=== PATIENT | female | born 1980 | race Caucasian/White ===

== ENCOUNTER 2017-08-09 14:15 | Emergency (ER) | payer OTHER ==
[2017-08-09 14:15] VITALS: BMI 25.0
[2017-08-09 14:30] VITALS: TEMP 98.7; O2SAT 98
--- NOTE | 2017-08-09 15:25 | ED PDOC ---
Arrival/HPI <Keyon De Souza - Last Filed: 08/09/17 16:27> <Rick Myles - Last Filed: 08/09/17 19:49> - General Chief Complaint: Chest Pain Time Seen by Provider: 08/09/17 14:41 - History of Present Illness Narrative History of Present Illness (Text): 08/09/17 15:20 37 yo F with PMH of fibromyalgia presents to Emergency department with chest pressure. Pt states that last night she started to get blurred vision that lasted only a few minutes. Then today she went to exercise in the morning. After working out she had blurred vision again and things became dark. Again this episode only lasted a few minutes. While patient was at work she started to get a midsternal pressure that radiates inferiorly. Pt was worried and came to Emergency department to be evaluated. Pt states that pressure is still present and doesnt feel anxious. Pt denied shortness of breath, n/v/d, abdominal pain, fever, chills, LOC, syncopal or near syncopal episode, dysuria, HAAS, or dizziness. Of note patient states she recently travelled international one month ago and is currently taking oral contraceptives. PMD: Yolanda (Rick Myles) Past Medical History - Provider Review Nursing Documentation Reviewed: Yes - Infectious Disease Hx of Infectious Diseases: None - Neurological Other/Comment: Fibromyalgia - Musculoskeletal/Rheumatological Other/Comment: fibromyalgia - Psychiatric Hx Anxiety: Yes Hx Depression: Yes Hx Substance Use: No Other/Comment: insomnia - Past Surgical History Past Surgical History: No Previous - Suicidal Assessment Feels Threatened In Home Enviroment: No <Rick Myles - Last Filed: 08/09/17 19:49> Family/Social History - Physician Review Nursing Documentation Reviewed: Yes Family/Social History: No Known Family HX Smoking Status: Former Smoker Hx Alcohol Use: No Hx Substance Use: No Hx Substance Use Treatment: No <Rick Myles - Last Filed: 08/09/17 19:49> Allergies/Home Meds <Keyon De Souza - Last Filed: 08/09/17 16:27> <Rick Myles - Last Filed: 08/09/17 19:49> Allergies/Adverse Reactions: Allergies azithromycin Allergy (Verified 08/09/17 14:50) DIARRHEA Gi problems when taking this medication. Penicillins Allergy (Verified 08/09/17 14:50) ITCHING Home Medications: Home Meds Medication Instructions Recorded Confirmed ALPRAZolam [Xanax] 1 tab PO HS 08/09/17 08/09/17 Zolpidem [Ambien] 10 mg PO HS 08/09/17 08/09/17 tiZANidine [Zanaflex] 4 mg PO HS 08/09/17 08/09/17 Review of Systems - Review of Systems Constitutional: Normal Eyes: Normal ENT: Normal Respiratory: Normal Cardiovascular: Other (chest pressure). absent: Chest Pain, Palpitations, Orthopnea Gastrointestinal: Normal Genitourinary Female: Normal Musculoskeletal: Normal Skin: Normal Neurological: Normal Endocrine: Normal Hemo/Lymphatic: Normal Psychiatric: Normal <Rick Myles - Last Filed: 08/09/17 19:49> Physical Exam Temperature: Afebrile Blood Pressure: Normal Pulse: Regular Respiratory Rate: Normal Appearance: Positive for: Well-Appearing, Non-Toxic, Comfortable Pain Distress: None Mental Status: Positive for: Alert and Oriented X 3 - Systems Exam Head: Present: Atraumatic, Normocephalic Pupils: Present: PERRL Extroacular Muscles: Present: EOMI Conjunctiva: Present: Normal Mouth: Present: Moist Mucous Membranes Neck: Present: Normal Range of Motion Respiratory/Chest: Present: Clear to Auscultation, Good Air Exchange. No: Respiratory Distress, Accessory Muscle Use, Wheezes, Rales, Rhonchi Cardiovascular: Present: Regular Rate and Rhythm, Normal S1, S2. No: Murmurs, Rub Abdomen: Present: Normal Bowel Sounds. No: Tenderness, Distention, Peritoneal Signs, Rebound, Guarding Back: Present: Normal Inspection Upper Extremity: Present: Normal Inspection. No: Cyanosis, Edema Lower Extremity: Present: Normal Inspection. No: Edema Neurological: Present: GCS=15, CN II-XII Intact, Speech Normal Skin: Present: Warm, Dry, Normal Color. No: Rashes Psychiatric: Present: Alert, Oriented x 3, Normal Insight, Normal Concentration <Keyon De Souza - Last Filed: 08/09/17 16:27> Vital Signs Reviewed: Yes Temperature: Afebrile Blood Pressure: Normal Pulse: Regular Respiratory Rate: Normal Appearance: Positive for: Well-Appearing Pain Distress: None Mental Status: Positive for: Alert and Oriented X 3 - Systems Exam Head: Present: Atraumatic, Normocephalic Mouth: Present: Moist Mucous Membranes Neck: Present: Normal Range of Motion Respiratory/Chest: Present: Clear to Auscultation. No: Wheezes, Rales, Rhonchi Cardiovascular: Present: Regular Rate and Rhythm, Normal S1, S2. No: Murmurs, Rub, Muffled Abdomen: No: Tenderness, Distention, Rebound, Guarding Upper Extremity: Present: Normal Inspection Lower Extremity: Present: Normal Inspection Neurological: Present: GCS=15, CN II-XII Intact Skin: Present: Warm, Dry, Normal Color Psychiatric: Present: Alert, Oriented x 3 <Rick Myles - Last Filed: 08/09/17 19:49> Vital Signs Temp Pulse Resp BP Pulse Ox 08/09/17 17:44 68 20 126/91 H 98 08/09/17 14:29 98.7 F 69 18 134/79 98 Medical Decision Making <Keyon De Souza - Last Filed: 08/09/17 16:27> <Rick Myles - Last Filed: 08/09/17 19:49> ED Course and Treatment: 08/09/17 16:27 37 year old female presents to the ED c/o chest pressure. I agree with resident history and physical assessment and plan. I interviewed and examined the patient myself as well. -- Labs -- PERC ruled out; h/o oral contraceptive and recent flight so d-dimer sent -- CXR, EKG EKG = NSR at [address] elevations. Nl Intervals Chest X-ray Accession No. : [id number] Patient Name / ID : MARK LUTHER / [id number] IMPRESSION: No active disease. HEART Score is 1 (ex-smoker). Will repeat troponin in 3 hours. (Keyon De Souza) 08/09/17 15:26 Assessment: 37 yo F presents with 1 day history of chest pressure. Due to patient's history of recent travel and oral contraceptive use, d-dimer ordered to rule out PE. Plan: - CBC - CMP - Cardiac iso - EKG - CXR - D-dimer - Reassess and Disposition 08/09/17 16:34 EKG showed NSR, rate 73. CXR as read by radiologist showed no active disease. 08/09/17 17:22 Labs unremarkable. Discussed results with patient. Advised patient that we will measure cardiac iso 3 hours from initial labs and if negative she could be discharged to follow up with her PMD. 08/09/17 19:16 2nd Troponin negative. Discussed results with patient. Informed patient that her symptoms are likely not cardiac in nature. Advised patient to follow up with her PMD as an outpatient. Patient demonstrates understanding and agrees. (Rick Myles) - Lab Interpretations Lab Results: 08/09/17 15:40 08/09/17 15:40 Lab Results 08/09/17 17:59: Troponin I < 0.01 08/09/17 15:45: Urine HCG, Qual Negative 08/09/17 15:40: PT 12.6 H, INR 1.10 H, APTT 27.5, D-Dimer, Quantitative 210 08/09/17 15:40: Sodium 140, Potassium 4.1, Chloride 105, Carbon Dioxide 23, Anion Gap 16, BUN 16, Creatinine 0.6 L, Est GFR ( Amer) > 60, Est GFR ( Non-Af Amer) > 60, Random Glucose 95, Calcium 9.6, Magnesium 2.2, Total Bilirubin 0.4, AST 32, ALT 33, Alkaline Phosphatase 66, Lactate Dehydrogenase 425, Total Creatine Kinase 72, Troponin I < 0.01, NT-Pro-B Natriuret Pep 23.4, Total Protein 7.7, Albumin 4.2, Globulin 3.5, Albumin/Globulin Ratio 1.2 08/09/17 15:40: WBC 11.7 H, RBC 4.86, Hgb 14.7, Hct 41.9, MCV 86.2, MCH 30.2, MCHC 35.1, RDW 12.2, Plt Count 370, MPV 10.1, Gran % 58.6, Lymph % (Auto) 34.8, [place] % (Auto) 4.9, Eos % (Auto) 1.4 L, Baso % (Auto) 0.3, Gran # 6.86 H, Lymph # (Auto) 4.1 H, [place] # (Auto) 0.6, Eos # (Auto) 0.2, Baso # (Auto) 0.04 - RAD Interpretation Radiology Orders: 08/09/17 15:16 CXR [CHEST PORTABLE] [RAD] Stat - Medication Orders Current Medication Orders: Discontinued Medications Aspirin (Aspirin) 325 mg PO STAT STA Stop: 08/09/17 15:26 Last Admin: 08/09/17 15:35 Dose: 325 mg Disposition/Present on Arrival - Present on Arrival Any Indicators Present on Arrival: No <Keyon De Souza - Last Filed: 08/09/17 16:27> - Present on Arrival Any Indicators Present on Arrival: No History of DVT/PE: No History of Uncontrolled Diabetes: No Urinary Catheter: No History of Decub. Ulcer: No History Surgical Site Infection Following: None - Disposition Have Diagnosis and Disposition been Completed?: Yes Disposition Time: 19:17 Patient Plan: Discharge <Rick Myles - Last Filed: 08/09/17 19:49> - Disposition Diagnosis: Chest pain Disposition: HOME/ ROUTINE Patient Problems: Current Active Problems Problem Status Onset Chest pain Acute Condition: STABLE Discharge Instructions (ExitCare): Chest Pain (ED) Additional Instructions: 1. Follow up with PMD within 1 week 2. Continue home medications as prescribed 3. Return to ED if symptoms worsen Referrals: [facility] Wen Aldridge, [Primary Care Provider] - Follow up with primary Wing Guerrero MD [Staff Provider] - Follow up with primary Forms: [employer] ([place])
[2017-08-09 16:08] LABS: BASO # 0.04 K/mm3 (0.0-2.0); BASO % 0.3 % (0.0-3.0); EOS # 0.2 (0.0-0.7); EOS % 1.4 % (1.5-5.0); GRAN # 6.86 (1.4-6.5); GRAN % 58.6 % (50.0-68.0); HEMOGLOBIN 14.7 g/dL (12.0-16.0); LYMPH # 4.1 (1.2-3.4); LYMPH % 34.8 % (22.0-35.0); MEAN CELL VOLUME 86.2 fl (80.0-105.0); MEAN CORPUSCULAR HEMOGLOBIN 30.2 pg (25.0-35.0); MEAN CORPUSCULAR HGB CONC 35.1 g/dl (31.0-37.0); MEAN PLATELET VOLUME 10.1 fl (7.0-11.0); MONO # 0.6 (0.1-0.6); MONO % 4.9 % (1.0-6.0); RBC 4.86 10^6/uL (3.5-6.1); RED CELL DISTRIBUTION WIDTH 12.2 % (11.5-14.5); WHITE BLOOD COUNT 11.7 10^3/ul (4.5-11.0)
--- NOTE | 2017-08-09 16:30 | RAD ---
HISTORY: chest pain COMPARISON: 09/09/2014 FINDINGS: LUNGS: No active pulmonary disease. PLEURA: No significant pleural effusion identified, no pneumothorax apparent. CARDIOVASCULAR: Normal. OSSEOUS STRUCTURES: No significant abnormalities. VISUALIZED UPPER ABDOMEN: Normal. OTHER FINDINGS: None. IMPRESSION: No active disease.
[2017-08-09 16:31] LABS: INR 1.1 (0.93-1.08); PARTIAL THROMBOPLASTIN TIME 27.5 Seconds (25.1-36.5); PROTHROMBIN TIME 12.6 SECONDS (9.4-12.5)
[2017-08-09 16:38] LABS: ALB/GLOB RATIO 1.2 (1.1-1.8); ALBUMIN 4.2 g/dL (3.0-4.8); ALT/SGPT 33 U/L (7-56); AST/SGOT 32 U/L (14-36); BLOOD UREA NITROGEN 16 mg/dL (7-21); CALCIUM 9.6 mg/dL (8.4-10.5); GFR AFRICAN-AMERICAN > 60; GFR NON-AFRICAN AMERICAN > 60; MAGNESIUM 2.2 mg/dL (1.7-2.2)
[2017-08-09 16:47] LABS: B-TYPE NATRIURETIC PEPTIDE 23.4 pg/mL (0-450)
[2017-08-09 16:51] LABS: TROPONIN I < 0.01 ng/mL
[2017-08-09 17:45] VITALS: BP 126/91; PULSE 68; RESP 20
--- NOTE | 2017-08-09 19:36 | CARD ---
APPROVED REPORT EKG Measurement Heart [id number] <Conclusion> Normal sinus rhythm Normal ECG
== END 2017-08-09 19:30 | disposition home or self-care (01) ==
LOC: ED 14:15
DX: R07.9 Chest pain, unspecified (principal); Z87.891 Personal history of nicotine dependence; M79.7 Fibromyalgia

== ENCOUNTER 2018-03-09 12:05 | Emergency (ER) | payer OTHER ==
[2018-03-09 12:06] VITALS: BMI 25.0
[2018-03-09 12:43] VITALS: TEMP 98.4
--- NOTE | 2018-03-09 13:18 | ED PDOC ---
Arrival/HPI - History of Present Illness Narrative History of Present Illness (Text): 03/09/18 13:14 37 yo F with PMHx of fibromyalgia and lumbar disc herniations presenting to the ED with acute onset lower back pain. Per patient, she was bending down to grab something earlier this morning when she felt a sudden popping sensation in her lower back, followed by acute pain. Patient describes the pain as sharp, 10/10 in severity, nonradiating pain localized to lower spine, worsened by flexion and slightly improved while standing. PMHx: lumbar disc herniations, fibromyalgia PSHx: denies Allergies: PCN, azithromycin Home Medications: as per chart FHx: non-contributory Social Hx: denies alcohol, tobacco, illicit drug use PMD: Dr. Guerrero Time/Duration: 1-3 hours Symptom Onset: Sudden Symptom Course: Unchanged Quality: Stabbing Severity Level: Severe Activities at Onset: Light <Roberth Gutierrez - Last Filed: 03/09/18 16:47> <Ivan White - Last Filed: 03/09/18 17:52> - General Chief Complaint: Back Pain Time Seen by Provider: 03/09/18 12:45 Past Medical History - Provider Review Nursing Documentation Reviewed: Yes - Infectious Disease Hx of Infectious Diseases: None - Cardiac Hx Cardiac Disorders: No - Pulmonary Hx Respiratory Disorders: No - Neurological Hx Neurological Disorder: Yes Other/Comment: Fibromyalgia - HEENT Hx HEENT Disorder: No - Endocrine/Metabolic Hx Endocrine Disorders: No - Hematological/Oncological Hx Blood Disorders: No - Integumentary Hx Dermatological Disorder: No - Musculoskeletal/Rheumatological Hx Musculoskeletal Disorders: Yes Hx Back Pain: Yes Other/Comment: fibromyalgia - Gastrointestinal Hx Gastrointestinal Disorders: No - Genitourinary/Gynecological Hx Genitourinary Disorders: No - Psychiatric Hx Anxiety: Yes Hx Depression: Yes Hx Substance Use: No Other/Comment: insomnia - Past Surgical History Past Surgical History: No Previous - Suicidal Assessment Feels Threatened In Home Enviroment: No <Roberth Gutierrez - Last Filed: 03/09/18 16:47> Family/Social History - Physician Review Nursing Documentation Reviewed: Yes Family/Social History: Unknown Family HX Smoking Status: Former Smoker Hx Alcohol Use: No Hx Substance Use: No Hx Substance Use Treatment: No <Roberth Gutierrez - Last Filed: 03/09/18 16:47> Allergies/Home Meds <BrendaRoberth - Last Filed: 03/09/18 16:47> <Ivan White - Last Filed: 03/09/18 17:52> Allergies/Adverse Reactions: Allergies azithromycin Allergy (Verified 03/09/18 12:37) DIARRHEA Gi problems when taking this medication. Penicillins Allergy (Verified 03/09/18 12:37) ITCHING Home Medications: Home Meds Medication Instructions Recorded Confirmed ALPRAZolam [Xanax] 1 tab PO HS 08/09/17 03/09/18 Zolpidem [Ambien] 10 mg PO HS 08/09/17 03/09/18 tiZANidine [Zanaflex] 4 mg PO HS 08/09/17 03/09/18 Norethindrone AC-Eth Estradiol 1 tab PO DAILY 03/09/18 03/09/18 [Loestrin 21 1-20 Tablet] Review of Systems - Review of Systems Constitutional: Normal Eyes: Normal ENT: Normal Respiratory: Normal Cardiovascular: Normal Gastrointestinal: Normal Genitourinary Female: Normal Musculoskeletal: Back Pain, Myalgias (chronic). absent: Neck Pain, Joint Swelling Skin: Normal Neurological: Normal Endocrine: Normal Hemo/Lymphatic: Normal Psychiatric: Normal <BrendaRoberth - Last Filed: 03/09/18 16:47> Physical Exam - Physical Exam Narrative Physical Exam (Text): 03/09/18 13:27 TTP at L4, L5, S1 spinous processes paraspinal tenderness at same levels Limited ROM with flexion 2/2 pain SLR + on the R gross motor/sensation intact Vital Signs Reviewed: Yes Vital Signs Temp Pulse Resp BP 03/09/18 12:38 98.4 F 77 16 115/76 Temperature: Afebrile Blood Pressure: Normal Pulse: Regular Respiratory Rate: Normal Appearance: Positive for: Well-Appearing, Non-Toxic, Uncomfortable Pain Distress: Moderate Mental Status: Positive for: Alert and Oriented X 3 - Systems Exam Head: Present: Atraumatic, Normocephalic Pupils: Present: PERRL Extroacular Muscles: Present: EOMI Conjunctiva: Present: Normal Ears: Present: Normal Mouth: Present: Moist Mucous Membranes Pharnyx: Present: Normal Neck: Present: Normal Range of Motion. No: MIDLINE TENDERNESS, Paraspinal Tenderness Respiratory/Chest: Present: Clear to Auscultation, Good Air Exchange. No: Respiratory Distress, Accessory Muscle Use, Wheezes, Rales, Rhonchi Cardiovascular: Present: Regular Rate and Rhythm, Normal S1, S2. No: Murmurs Abdomen: Present: Normal Bowel Sounds. No: Tenderness, Distention, Peritoneal Signs, Rebound, Guarding, Mass/Organomegaly Back: Present: Normal Inspection, Midline Tenderness (TTP L4, L5, S1), Paraspinal Tenderness (L4, L5, S1), Pain with Leg Raise (SLR (+) on R). No: CVA Tenderness Upper Extremity: Present: Normal Inspection, Normal ROM, NORMAL PULSES, Capillary Refill < 2s. No: Cyanosis, Edema, Tenderness, Swelling, Erythema Lower Extremity: Present: Normal Inspection, NORMAL PULSES, Normal ROM, Capil laith Refill < 2 s. No: Edema, CALF TENDERNESS, Cyanosis, Erythema Neurological: Present: CN II-XII Intact, Speech Normal Skin: Present: Warm, Dry, Normal Color. No: Rashes Psychiatric: Present: Alert, Oriented x 3, Normal Insight, Normal Concentration <Roberth Gutierrez - Last Filed: 03/09/18 16:47> Vital Signs Temp Pulse Resp BP Pulse Ox 03/09/18 14:55 72 18 121/77 99 03/09/18 12:38 98.4 F 77 16 115/76 <Ivan White - Last Filed: 03/09/18 17:52> Medical Decision Making ED Course and Treatment: 03/09/18 13:32 Impression: 37 yo F with PMHx of disc herniation, fibromyalgia presenting to ED with acute onset non-radiating LBP Plan: --XR lumbar spine --flexeril 10 mg PO x1 --toradol 30 mg IM x1 --urine --monitor and disposition - RAD Interpretation Narrative RAD Interpretations (Text): 03/09/18 16:47 No acute fracture, spondylolysis, or spondylolisthesis. Mild degenerative disc disease of L4-5, L5-S1. Radiology Orders: 03/09/18 13:08 LS SPINE AP/LAT [RAD] Stat Business Education Teacher: ED Physician <Roberth Gutierrez - Last Filed: 03/09/18 16:47> ED Course and Treatment: 03/09/18 13:44 37 year old female presents to the Emergency department complaining of lower back pain. In agreement with resident note, which includes further HPI details. Patient was seen and evaluated with resident, came up with plan and treatment together. 03/09/18 17:43 pt seen with resident. ho of disk herniation with lbp s/p reaching "for something". no direct fall. no saddle anesthesia. xr neg. pt in er specifically requesting ct scan. advised of risk benefit of radiation. agrees to outpt mriadvise outpt fu with outpt mri. 03/09/18 17:43 - RAD Interpretation Radiology Orders: 03/09/18 13:08 LS SPINE AP/LAT [RAD] Stat - Medication Orders Current Medication Orders: Discontinued Medications Cyclobenzaprine HCl (Flexeril) 10 mg PO ONCE ONE Stop: 03/09/18 14:46 Cyclobenzaprine HCl (Flexeril) 10 mg PO STAT STA Stop: 03/09/18 13:09 Ketorolac Tromethamine (Toradol) 30 mg IM ONCE ONE Stop: 03/09/18 14:46 Ketorolac Tromethamine (Toradol) 30 mg IM STAT STA Stop: 03/09/18 13:09 Tramadol HCl (Ultram) 50 mg PO STAT STA Stop: 03/09/18 14:33 Last Admin: 03/09/18 15:12 Dose: 50 mg [facility] Pain Assessment Document 03/09/18 15:12 EQ (Rec: 03/09/18 15:12 EQ [id number]) Pain Reassessment Is this a pain reassessment? No Sleep Is patient sleeping during reassessment? No Presence of Pain Presence of Pain Yes <Ivan White - Last Filed: 03/09/18 17:52> - PA / MEDICAL INVESTIGATOR / Resident Statement MD/ has reviewed & agrees with the documentation as recorded. MD/DO has examined the patient and agrees with the treatment plan. - Scribe Statement The provider has reviewed the documentation as recorded by the Scribe Clarita Muhammad. Provider Scribe Attestation: All medical record entries made by the Scribe were at my direction and personally dictated by me. I have reviewed the chart and agree that the record accurately reflects my personal performance of the history, physical exam, medical decision making, and the department course for this patient. I have also personally directed, reviewed, and agree with the discharge instructions and disposition. <Ivan White - Last Filed: 03/09/18 17:52> Disposition/Present on Arrival - Present on Arrival Any Indicators Present on Arrival: No History of DVT/PE: No History of Uncontrolled Diabetes: No Urinary Catheter: No History of Decub. Ulcer: No History Surgical Site Infection Following: None - Disposition Have Diagnosis and Disposition been Completed?: Yes Disposition Time: 16:47 <Roberth Gutierrez - Last Filed: 03/09/18 16:47> <Ivan White - Last Filed: 03/09/18 17:52> - Disposition Diagnosis: Low back pain Disposition: HOME/ ROUTINE Condition: STABLE Discharge Instructions (ExitCare): Low Back Pain in Adults Additional Instructions: return to er with worsening symptoms or concerns. you are not cleared for travel. return to any er with worsening symptoms or concerns. Prescriptions: Cyclobenzaprine [Cyclobenzaprine HCl] 10 mg PO DAILY PRN #10 tab PRN Reason: Muscle Spasm RX: Naproxen 500 mg PO BID PRN #14 tablet PRN Reason: Pain, Mild (1-3) RX: traMADol [Ultram] 50 mg PO Q8 PRN #10 tab PRN Reason: Pain, Severe (8-10) Referrals: Wing Guerrero MD [Primary Care Provider] - Follow up with primary Forms: Parents [employer] People ([place])
--- NOTE | 2018-03-09 15:13 | RAD ---
Date of service: 03/09/2018 PROCEDURE: Radiographs of the Lumbar Spine. HISTORY: Low back pain COMPARISON: No prior. FINDINGS: BONES: There is normal alignment of the lumbar vertebral bodies. There is normal lumbar lordosis. There is no acute fracture, spondylolysis or spondylolisthesis. Bone mineralization is normal. DISC SPACES: There is mild degenerative disc disease at L4-5 and L5-S1. OTHER FINDINGS: There are no pathologic soft tissue calcifications. Both sacroiliac joints are normal. IMPRESSION: No acute fracture, spondylolysis or spondylolisthesis. Mild degenerative disc disease at L4-5 and L5-S1.
[2018-03-09 15:23] VITALS: BP 121/77; PULSE 72; RESP 18; O2SAT 99
== END 2018-03-09 15:22 | disposition home or self-care (01) ==
LOC: ED 12:05
DX: M54.5 Low back pain (principal); M79.7 Fibromyalgia

== ENCOUNTER 2018-07-01 09:11 | Outpatient (CLI) | payer OTHER | END 2018-07-01 09:12 | disposition home or self-care (01) | LOC: LAB 09:11 ==

== ENCOUNTER 2018-07-10 15:46 | Outpatient (CLI) | payer OTHER | END 2018-07-10 15:47 | disposition home or self-care (01) | LOC: RAD 15:47 ==

== ENCOUNTER 2018-09-18 13:25 | Outpatient (CLI) | payer OTHER | END 2018-09-18 13:26 | disposition home or self-care (01) | LOC: LAB 13:25 ==

== ENCOUNTER 2018-10-27 15:25 | Outpatient (CLI) | payer OTHER | END 2018-10-27 15:26 | disposition home or self-care (01) | LOC: LAB 15:25 ==